=== PATIENT | female | born 1940 | race Caucasian/White ===

== ENCOUNTER → 2017-08-06 | Outpatient (CLI) | payer OTHER ==
[~2017-08-06] MED LIST: A-B OTIC EAR DR15 ML OT; AUGMENTIN 875-1 EACH PO; AVELOX 400 MG400 M1 PO; BACTRIM 400-801 EACH; BELLADONNA500 ML; CALCIUM 600 +1 EAC8 PO; CEFDINIR300 MG PO; CLEOCIN HCL300 MG PO; CLONAZEPAM 0.50.5 M1 PO; ESTRACE2 MG PO; FENOFIBRATE134 MG PO; GLIPIZIDE ER5 MG PO; HYDROCODON-ACE1 EAC7 PO; LEVAQUIN 500 M500 MG PO; LEVOTHYROXINE0.05 MG PO; MOVANA300 MG PO; MULTIVITAMINS1 EAC7 PO; NORCO 5-325 TA1 EACH PO; PREDNISONE 1 MG1 M1; PREDNISONE 10 M10 M1 PO; PRILOSEC40 MG; VESICARE 5 MG TA5 M1 PO; VITAMIN C + RO500 MG PO; VITAMIN D1000 UNI1 PO; ZOFRAN ODT4 MG PO
== END ==
LOC: M.RAD 08:41
DX: J98.4 Other disorders of lung (principal); R91.8 Other nonspecific abnormal finding of lung field

== ENCOUNTER → 2017-11-30 | Outpatient (CLI) | payer OTHER ==
[~2017-11-30] MED LIST changes: +NEURONTIN 300300 M1 PO; +OFEV100 MG PO; +ONDANSETRON HCL4 M2 PO; +TRESIBA FL100 UNIT/1; +VICTOZA0.6 MG/0.1 SUBQ
== END | disposition home or self-care (01) ==
LOC: M.RAD 16:36
DX: R91.8 Other nonspecific abnormal finding of lung field (principal)

== ENCOUNTER 2018-02-17 16:01 | Emergency (ER) | payer OTHER ==
[~2018-02-17] VITALS: Ht 157.5 cm; Wt 72.6 kg
[~2018-02-17 16:01] MED LIST changes: -NEURONTIN 300300 M1 PO; -OFEV100 MG PO; -ONDANSETRON HCL4 M2 PO; -TRESIBA FL100 UNIT/1; -VICTOZA0.6 MG/0.1 SUBQ
[2018-02-17] MEDS ORDERED: NEURONTIN 300300 M1 PO (16:25)
[2018-02-17] MEDS ORDERED: VICTOZA0.6 MG/0.1 SUBQ (16:25)
[2018-02-17] MEDS ORDERED: TRESIBA FL100 UNIT/1 (16:25)
[2018-02-17] MEDS ORDERED: OFEV100 MG PO (16:25)
[2018-02-17 16:55] LABS: URINE BLOOD TRACE (Negative); URINE CLARITY CLEAR; URINE COLOR YELLOW; URINE GLUCOSE-RANDOM 3+ (Negative); URINE KETONES TRACE (Negative); URINE LEUKOCYTES-REFLEX NEGATIVE (Negative); URINE NITRITE-REFLEX NEGATIVE (Negative); URINE PROTEIN TRACE (Negative); URINE SPECIFIC GRAVITY >= 1.030 (1.005-1.030)
[2018-02-17 16:56] LABS: URINE BILIRUBIN 2+ (Negative)
[2018-02-17 16:57] LABS: ABSOLUTE BASOPHILS 0.1 thou/uL (0.0-0.2); ABSOLUTE EOSINOPHILS 0.4 thou/uL (0.0-0.7); ABSOLUTE LYMPHOCYTES 1.3 thou/uL (0.8-5.3); ABSOLUTE MONOCYTES 0.7 thou/uL (0.0-1.2); ABSOLUTE NEUTROPHILS 3.5 thou/uL (1.6-8.1); BASOPHILS 1.1 %; EOSINOPHILS 6.9 %; HEMATOCRIT 41.8 % (37.0-47.0); HEMOGLOBIN 14.4 gm/dL (12.0-15.0); LYMPHOCYTES 22.5 %; MCH 33.1 pg (26.0-34.0); MCHC 34.6 g/dL (28.0-37.0); MCV 95.7 fL (80.0-100.0); MONOCYTES 11.1 %; MPV 6.9 fl. (7.2-11.1); NUCLEATED RBCS 0 /100WBC; PLATELET COUNT* 296 thou/uL (150-400); POLYS 58.4 %; RBC 4.37 mil/uL (4.20-5.00); RDW-CV 13.6 % (10.5-14.5)
[2018-02-17 16:58] LABS: ICTOTEST (BILI CONFIRMATORY) Negative (Negative)
[2018-02-17 17:00] LABS: CALCIUM 9.3 mg/dL (8.5-10.1); CREATININE 0.9 mg/dL (0.6-1.3); POTASSIUM 3.8 mmol/L (3.5-5.1)
[2018-02-17 17:04] LABS: ALBUMIN 3.4 g/dL (3.4-5.0); TOTAL BILIRUBIN 1.8 mg/dL (<0.1-1.0); TOTAL PROTEIN 7.1 g/dL (6.4-8.2)
[2018-02-17] MEDS ORDERED: NORCO 5-325 TA1 EACH PO (18:50)
[2018-02-17] MEDS ORDERED: ONDANSETRON HCL4 M2 PO (18:50)
[2018-02-17 19:15] VITALS: BP 123/71
== END 2018-02-17 19:16 | disposition home or self-care (01) ==
LOC: M.ERS 16:01
PROVIDERS: Nurse Practitioner Family
DX: R10.33 Periumbilical pain (principal); R10.13 Epigastric pain; E11.65 Type 2 diabetes mellitus with hyperglycemia; R94.5 Abnormal results of liver function studies; F41.9 Anxiety disorder, unspecified; K58.9 Irritable bowel syndrome, unspecified; E78.00 Pure hypercholesterolemia, unspecified; E03.9 Hypothyroidism, unspecified; Z90.710 Acquired absence of both cervix and uterus; Z88.5 Allergy status to narcotic agent; Z90.49 Acquired absence of other specified parts of digestive tract

== ENCOUNTER → 2019-03-29 | Outpatient (CLI) | payer OTHER ==
[~2019-03-29] MED LIST changes: +NEURONTIN 300300 M1 PO; +OFEV100 MG PO; +ONDANSETRON HCL4 M2 PO; +TRESIBA FL100 UNIT/1; +VICTOZA0.6 MG/0.1 SUBQ
== END ==
LOC: M.RAD 12:30
DX: M25.571 Pain in right ankle and joints of right foot (principal)

== ENCOUNTER 2019-07-13 22:00 | Observation (INO) | payer OTHER ==
[~2019-07-13] VITALS: Ht 157.5 cm; Wt 57.6 kg
[~2019-07-13 22:00] MED LIST changes: -LEVOTHYROXINE0.05 MG PO; +OMEPRAZOLE40 MG; -PRILOSEC40 MG; +SYNTHROID50 MCG PO
[2019-07-13 22:06] VITALS: BP 154/77
[2019-07-13 22:31] LABS: HEMOGLOBIN 13.4 gm/dL (12.0-15.0); NUCLEATED RBCS 0 /100WBC; RDW-CV 12.7 % (10.5-14.5)
[2019-07-13 22:34] LABS: HEMATOCRIT 38.6 % (37.0-47.0); MCH 33.6 pg (26.0-34.0); MCHC 34.8 g/dL (28.0-37.0); MCV 96.6 fL (80.0-100.0); MPV 6.2 fl. (7.2-11.1); PLATELET COUNT* 376 thou/uL (150-400); WBC 14.8 thou/uL (4.0-11.0)
[2019-07-13 22:36] LABS: CALCIUM 9.4 mg/dL (8.5-10.1); CREATININE 1.7 mg/dL (0.6-1.3); POTASSIUM 4.9 mmol/L (3.5-5.1)
[2019-07-13 22:41] LABS: ALBUMIN 3.5 g/dL (3.4-5.0); MAGNESIUM 1.7 mg/dL (1.8-2.4); TOTAL BILIRUBIN 0.5 mg/dL (<0.1-1.0); TOTAL PROTEIN 6.6 g/dL (6.4-8.2)
[2019-07-13 23:06] LABS: ABSOLUTE EOSINOPHILS 0.4 thou/uL (0.0-0.7); ABSOLUTE LYMPHOCYTES 2.2 thou/uL (0.8-5.3); ABSOLUTE MONOCYTES 0.3 thou/uL (0.0-1.2); ABSOLUTE NEUTROPHILS 11.8 thou/uL (1.6-8.1); ATYPICAL LYMPHS 1 %; CLUMPED PLTS FEW; PLATELET ESTIMATE ADEQUATE; TOXIC GRANULATION 1+
[2019-07-13 23:07] LABS: ANISOCYTOSIS Occasional
[2019-07-14] VITALS (11 sets, daily range): BP systolic 96–154; BP diastolic 45–84
[2019-07-14 04:59] LABS: URINE BILIRUBIN NEGATIVE (Negative); URINE BLOOD NEGATIVE (Negative); URINE CLARITY CLEAR; URINE COLOR YELLOW; URINE GLUCOSE-RANDOM 1+ (Negative); URINE KETONES NEGATIVE (Negative); URINE LEUKOCYTES-REFLEX NEGATIVE (Negative); URINE NITRITE-REFLEX NEGATIVE (Negative); URINE PROTEIN NEGATIVE (Negative); URINE SPECIFIC GRAVITY 1.015 (1.005-1.030); URINE UROBILINOGEN 0.2 E.U./dl (0.2-1.0)
--- NOTE | 2019-07-14 05:10 | NUR ---
VITALS STABLE, AFEBRILE. PT REMAINS ON RA, REPORTS SHE IS ON 1L PER NC AT HOME. DENIES PAIN WHEN STILL, REPORTS PAIN WHEN MOVING RIGHT ARM. ABLE TO GET UP TO COMMODE WITH SOME ASSISTANCE. FALL PRECAUTIONS IN PLACE. CALL LIGHT WITHIN REACH. WILL CONTINUE MONITORING.
[2019-07-14] MEDS ORDERED: NORCO 5-325 TA1 EAC2 PO (08:15)
--- NOTE | 2019-07-14 10:04 | NUR ---
Pt is A&O. Normally resides at home alone. Independent. No DME. Pt discharging to today, plans to dc to her dtr, Bernarda Phan's home, [address] [place] [id number], . Dtr to pick Pt up from home later today. Neighbor will transport Pt home. HH arranged with [facility] p:[phone], f:[phone]. Updated Pt and dtr.
[2019-07-14 10:11] LABS: HEMATOCRIT 36.3 % (37.0-47.0); HEMOGLOBIN 12.5 gm/dL (12.0-15.0); MCH 33.1 pg (26.0-34.0); MCHC 34.6 g/dL (28.0-37.0); MCV 95.8 fL (80.0-100.0); MPV 6.4 fl. (7.2-11.1); RBC 3.79 mil/uL (4.20-5.00); RDW-CV 12.9 % (10.5-14.5); WBC 16.8 thou/uL (4.0-11.0)
[2019-07-14 10:18] LABS: CALCIUM 8.8 mg/dL (8.5-10.1); CREATININE 1.1 mg/dL (0.6-1.3); MAGNESIUM 2.2 mg/dL (1.8-2.4); POTASSIUM 4.2 mmol/L (3.5-5.1)
--- NOTE | 2019-07-14 12:34 | NUR ---
PATIENT D/C TO HOME WITH HOME HEALTH AFTER PT/OT EVALUATION AND ORTHO TEAM CLEARED. AOF BOOT FOR RIGHT FOOT DROP PROVIDED. SLING ON AND EDUCATED ON IMPORTANANCE OF KEEPING ON AND NOT USING SHOULDER. FOLLOW UPS PROVIDED. ALL QUESTIONS ANSWERED. DISCHARGE INSTRUCTIONS PROVIDED. DAUGHTER AWARE OF D/C AND ON HER WAY FROM [facility] TO RADIOGRAPHY TECHNICIAN PATIENT. HH TO CALL PATIENT TO SET UP CARE.
== END 2019-07-14 12:30 | disposition home health service (06) ==
LOC: M.ERS 22:00 → M.ICU 07-14 00:04 → M.TBA-ER 07-14 00:04 → M.ICU 07-14 00:04
PROVIDERS: Emergency Medicine; ADMIT Internal Medicine
DX: M80.021A Age-related osteoporosis with current pathological fracture, right humerus, initial encounter for fracture (principal); E86.9 Volume depletion, unspecified; E11.65 Type 2 diabetes mellitus with hyperglycemia; E83.42 Hypomagnesemia; R32 Unspecified urinary incontinence; R53.81 Other malaise; R55 Syncope and collapse; W01.0XXA Fall on same level from slipping, tripping and stumbling without subsequent striking against object, initial encounter; Y92.89 Other specified places as the place of occurrence of the external cause; Y93.89 Activity, other specified; Y99.8 Other external cause status

== ENCOUNTER 2020-01-03 21:14 | Inpatient (IN) | payer OTHER ==
[~2020-01-03] VITALS: Ht 157.5 cm; Wt 68.0 kg
[~2020-01-03 21:14] MED LIST changes: +NORCO 5-325 TA1 EAC2 PO
[2020-01-03 21:27] VITALS: BP 155/72
[2020-01-03 21:46] LABS: ABSOLUTE BASOPHILS 0.2 thou/uL (0.0-0.2); ABSOLUTE EOSINOPHILS 0.2 thou/uL (0.0-0.7); ABSOLUTE LYMPHOCYTES 1.6 thou/uL (0.8-5.3); ABSOLUTE NEUTROPHILS 14.8 thou/uL (1.6-8.1); BASOPHILS 0.9 %; EOSINOPHILS 0.9 %; HEMATOCRIT 37.8 % (37.0-47.0); HEMOGLOBIN 12.8 gm/dL (12.0-15.0); LYMPHOCYTES 9.1 %; MCH 32.6 pg (26.0-34.0); MCHC 33.8 g/dL (28.0-37.0); MCV 96.6 fL (80.0-100.0); MONOCYTES 5.6 %; MPV 6.4 fl. (7.2-11.1); NUCLEATED RBCS 0 /100WBC; PLATELET COUNT* 302 thou/uL (150-400); POLYS 83.5 %; RBC 3.91 mil/uL (4.20-5.00); RDW-CV 13.4 % (10.5-14.5); WBC 17.7 thou/uL (4.0-11.0)
[2020-01-03 21:54] LABS: CALCIUM 8.8 mg/dL (8.5-10.1); CREATININE 1.1 mg/dL (0.6-1.3); POTASSIUM 3.6 mmol/L (3.5-5.1)
[2020-01-03 21:58] LABS: ALBUMIN 3.4 g/dL (3.4-5.0); TOTAL BILIRUBIN 1.5 mg/dL (<0.1-1.0); TOTAL PROTEIN 6.9 g/dL (6.4-8.2)
[2020-01-04] VITALS (23 sets, daily range): BP systolic 92–152; BP diastolic 39–76
[2020-01-04 08:14] LABS: BE -4.3 mmol/L (-2 to +3); PCO2 38.3 mmHg (35.0-45.0); pH 7.353 (7.340-7.450)
[2020-01-04 17:18] LABS: PCO2 38.8 mmHg (35.0-45.0)
[2020-01-04 17:32] LABS: PO2 149.5 mmHg (75.0-100.0)
--- NOTE | 2020-01-04 17:46 | EKG ---
[place] [address] ELECTROCARDIOGRAM REPORT Name: ADIA TSANG Room: [address] ADM IN ..#: [id number] Admission: 01/03/20 Attend Phys: Radhika Vasquez, Discharge: Date of : 44 Date of Service: 01/03/208 Report #: [id number] THIS REPORT FOR: //name// [facility] ED Test Date: 2020-01-03 Test Time: 21:38:33 Pat Name: ADIA TSANG Department: Room: [facility] Gender: F Application Integrator: SHANNAN : 1940 Requested By: Nj Laird Order Number: [id number] MD: Aftab Snyder Measurements Intervals [place] Rate: 98 P: 24 LA: 132 QRS: -36 QRSD: 80 T: 119 QT: 328 QTc: 419 Interpretive Statements Sinus rhythm Left anterior fascicular block RSR' in V1 or V2, probably normal variant Consider anterior infarct Abnormal T, consider ischemia, lateral leads No previous ECG available for comparison Electronically Signed On 01-04-2020 17:46:30 CDT by Aftab Snyder [email or web address] <ELECTRONICALLY SIGNED> By: Aftab Snyder MD, FACC 01/04/20 1746 37 37 Aftab Snyder MD, FACC /EPI
[2020-01-04 18:36] LABS: HEMATOCRIT 31.6 % (37.0-47.0); MCH 32.7 pg (26.0-34.0); MCHC 33.6 g/dL (28.0-37.0); MCV 97.2 fL (80.0-100.0); MPV 6.7 fl. (7.2-11.1); NUCLEATED RBCS 0 /100WBC; PLATELET COUNT* 270 thou/uL (150-400); RBC 3.25 mil/uL (4.20-5.00); RDW-CV 13.5 % (10.5-14.5); WBC 17.5 thou/uL (4.0-11.0)
[2020-01-04 18:38] LABS: HEMOGLOBIN 10.6 gm/dL (12.0-15.0)
[2020-01-04 18:45] LABS: ALBUMIN 2.7 g/dL (3.4-5.0); CALCIUM 8.4 mg/dL (8.5-10.1); CREATININE 1.1 mg/dL (0.6-1.3); MAGNESIUM 1.8 mg/dL (1.8-2.4); PHOSPHORUS* 3.5 mg/dL (2.5-4.9); POTASSIUM 4.4 mmol/L (3.5-5.1); TOTAL PROTEIN 6.1 g/dL (6.4-8.2)
[2020-01-04 19:01] LABS: ABSOLUTE LYMPHOCYTES 1.2 thou/uL (0.8-5.3); ABSOLUTE MONOCYTES 0.9 thou/uL (0.0-1.2); ABSOLUTE NEUTROPHILS 15.4 thou/uL (1.6-8.1)
[2020-01-04 19:02] LABS: LARGE PLATELETS RARE; PLATELET ESTIMATE ADEQUATE
[2020-01-05] VITALS (55 sets, daily range): BP systolic 85–152; BP diastolic 38–74
[2020-01-05 05:36] LABS: CALCIUM 8.7 mg/dL (8.5-10.1); CREATININE 1.2 mg/dL (0.6-1.3); POTASSIUM 3.7 mmol/L (3.5-5.1)
[2020-01-05 06:32] LABS: ABSOLUTE LYMPHOCYTES 0.7 thou/uL (0.8-5.3); ABSOLUTE MONOCYTES 0.3 thou/uL (0.0-1.2); ABSOLUTE NEUTROPHILS 14.3 thou/uL (1.6-8.1); BASOPHILS 0.2 %; HEMATOCRIT 28.7 % (37.0-47.0); HEMOGLOBIN 9.7 gm/dL (12.0-15.0); LYMPHOCYTES 4.6 %; MCH 32.8 pg (26.0-34.0); MCHC 33.8 g/dL (28.0-37.0); MONOCYTES 2.2 %; MPV 6.7 fl. (7.2-11.1); NUCLEATED RBCS 0 /100WBC; PLATELET COUNT* 257 thou/uL (150-400); RBC 2.96 mil/uL (4.20-5.00); WBC 15.4 thou/uL (4.0-11.0)
[2020-01-05 11:24] LABS: BE -3.6 mmol/L (-2 to +3); PCO2 27.8 mmHg (35.0-45.0); PO2 91.2 mmHg (75.0-100.0); pH 7.461 (7.340-7.450)
--- NOTE | 2020-01-05 12:19 | CON ---
[address] [address] CONSULTATION Name: ADIA TSANG Room: [address] IN .R.#: [id number] Admission: 01/03/20 Attend Phys: Radhika Vasquez MD Discharge: Date of : 44 Report #: [id number] THIS REPORT FOR: //name// cc: Jenise Goldstein MD, Lin W. MD ~ THIS REPORT FOR: //name// DATE OF SERVICE: 01/04/2020 CONSULT REQUESTED BY: Rico Duarte MD INDICATION FOR CONSULTATION: Eskhr-ta-jyqarxd hypoxemic respiratory failure. HISTORY OF PRESENT ILLNESS: This is a 79-year-old female with past medical history includes a history of pulmonary fibrosis. The patient is on oxygen long-term. I am not aware of a previous history of long-term steroid use. The patient does use a fibroblasts to inhibit her Ofev long-term. The patient is now admitted with acute increase in shortness of breath, initially noted to have desaturated into the 70s. The patient has had recent falls as well. The patient, per the records is a DNR; however, it appears that the patient failed BiPAP and she was endotracheally intubated. The patient currently is on the ventilator. She is currently on Versed as well as fentanyl infusions. Blood pressure is soft; however, still in an acceptable range. She did have a CTA chest performed last night. It shows considerable worsening and previously seen infiltrates; however, previous x-rays from a couple of years ago, I do not have a more recent comparison. The patient is unable to provide a further history or review of systems. PAST MEDICAL HISTORY: Type 2 diabetes, pulmonary fibrosis, on the fibroblast inhibitor long-term on oxygen long-term. This history will be consistent with a usual interstitial pneumonitis, status post hysterectomy, laparoscopic cholecystectomy, irritable bowel syndrome, depression, neuropathy, ankle strain and multiple falls. I do not have a measure of her left ventricular ejection fraction available at this time. SOCIAL HISTORY: Lifetime nonsmoker. No known history of heavy alcohol use or illegal drug use according to the records, I am not able to ask the patient directly at this time. CURRENT MEDICATIONS: List in Xceive reviewed. HOME MEDICATIONS: List also in Xceive reviewed. Note that the patient is on Ofev chcf. ALLERGIES: [place] [address] CONSULTATION Name: SURYAMELCHORADIA A Room: [address]#: [id number] Admission: 01/03/20 Attend Phys: Radhika Vasquez MD Discharge: Date of : 44 Report #: [id number] FAMILY HISTORY: There is no pertinent family history known at this time. PHYSICAL EXAMINATION: GENERAL: The patient is on the ventilator with a tidal volume of 500 and AC rate of 14, FiO2 is being titrated down, last noted to be at 60%. She is saturating in the high 90s. VITAL SIGNS: Has a pulse of 75. She is afebrile with a temperature of 36.3. HEENT: Head is normocephalic. There is bruising and injury to her right upper face/eye noted. There is an endotracheal tube in good position. NECK: Does not show raised JVP, asymmetry, mass or lymph nodes. CHEST: Symmetrical expansion on inspection and palpation. On auscultation, breath sounds are bilaterally equal. I do not hear any added sounds. HEART: Regular. There is no murmur. ABDOMEN: Soft and nontender. EXTREMITIES: Lower extremities show no edema, no calf tenderness. SKIN: Dry and intact. NEUROLOGICAL: She did move all extremities bilaterally equally and spontaneously. However, a detailed examination is not possible at this time. The patient's CTA chest from last night is as discussed above. LABORATORY DATA: The patient's lab work is in Xceive and is reviewed. COVID-19 antigen is negative. PCR is pending. ASSESSMENT AND PLAN: 1. Quvth-om-ktelhxa hypoxemic respiratory failure. There is an increase in infiltrates on the patient's chest x-ray compared with the x-ray performed in 2018. Either the patient's pulmonary fibrosis has significantly progressed or the patient has developed a new pneumonia. I do not have a more recent comparison available. There are x-rays of the ribs done in June, which do mage the chest as well. The new CT does appear to look significantly worse. For now, we will continue with current ventilator settings and sedation. We will titrate down FiO2 and follow response. 2. Pulmonary fibrosis/probable usual interstitial pneumonitis. The patient was on Ofev, therefore likely has usual interstitial pneumonitis underlying, in the short term corticosteroids are indicated during exacerbations. The patient is on Solu-Medrol. I agree with the same. Also, we will continue with DuoNebs. 3. Pulmonary infiltrates. I will obtain a repeat chest x-ray now post-intubation compared with the previous chest x-rays. The patient is on Levaquin. I did add Zosyn. I ordered sputum culture, I also ordered repeat labs. We will reevaluate after these are back and then assess as to whether MRSA coverage should also be added. I agree with testing for COVID-19 PCR as well. At this point, it is not fully apparent to me as to whether this is a progression of her fibrosis or whether the patient has an acute viral or bacterial pneumonia. The patient, however, is not febrile and does not have bandemia, [place] [address] CONSULTATION Name: TAPANROBERTMELCHORADIA Room: [address] IN [facility]#: [id number] Admission: 01/03/20 Attend Phys: Radhika Vasquez MD Discharge: Date of : 44 Report #: [id number] 4. IV access. The patient has a PICC line. 5. Deep vein thrombosis prophylaxis, Lovenox. 7. Gastrointestinal prophylaxis, Protonix. The patient is critically ill at this time. Total time spent providing critical care to this patient today is 43 minutes. <ELECTRONICALLY SIGNED> By: Clive Muñoz MD 01/05/20 1219 1757 1946Aelmer Muñoz MD /nt
--- NOTE | 2020-01-05 17:28 | 2DMMODE ---
[place] [address] 2 D/M-MODE ECHOCARDIOGRAM Name: ADIA TSANG Room: [address] ADM [place] .R.#: [id number] Admission: 01/03/20 Attend Phys: Radhika Vasquez, Discharge: Date of : 44 Date of Service: 01/05/20 1728 Report #: [id number] THIS REPORT FOR: cc: Jenise Goldstein MD, Lin W. MD Liston, Michael J. MD [facility] ~ APPROVED REPORT Study performed: 01/05/2020 14:16:14 EXAM: Comprehensive 2D, Doppler, and color-flow Echocardiogram Patient Location: ICU BSA: 1.59 HR: 66 bpm BP: 110/50 mmHg Other Information Study Quality: Adequate Indications Dyspnea 2D Dimensions IVSd: 12.65 (7-11mm) LVOT Diam: 18.15 (18-24mm) LVDd: 31.37 mm PWd: 12.22 (7-11mm) Ascending Ao: 27.44 (22-36mm) LVDs: 19.76 (25-40mm) Aortic Root: 25.68 mm Volumes Left Atrial Volume (Systole) LA ESV Index: 21.20 mL/m2 Aortic Valve AoV Peak Young.: 1.47 m/s AO Peak Gr.: 8.70 mmHg LVOT Max P.00 mmHg AO Mean Gr.: 5.01 mmHg LVOT Mean P.33 mmHg LVOT Max V: 1.12 m/s AO V2 VTI: 33.27 cm LVOT Mean V: 0.89 m/s THONY (VTI): 2.38 cm2 LVOT V1 VTI: 30.67 cm Mitral Valve MV Mean Gr.: 2.02 mmHg E/A Ratio: 0.77 [place] [address] 2 D/M-MODE ECHOCARDIOGRAM Name: ADIA TSANG Room: [address] IN ..#: [id number] Admission: 01/03/20 Attend Phys: Radhika Vasquez, Discharge: Date of : 44 Date of Service: 01/05/20 1728 Report #: [id number] MV Decel. Time: 310.79 ms MV E Max Young.: 0.97 m/s MV PHT: 90.13 ms MVA (PHT): 2.44 cm2 TDI E/Lateral E': 16.17 E/Medial E': 16.17 Medial E' Young.: 0.06 m/s Lateral E' Young.: 0.06 m/s Pulmonary Valve PV Peak Young.: 0.97 m/s PV Peak Gr.: 3.75 mmHg Tricuspid Valve RAP Estimate: 5.00 mmHg TR Peak Gr.: 65.33 mmHg RVSP: 70.33 mmHg PA Pressure: 70.33 mmHg Left Ventricle The left ventricle is normal size. There is normal LV segmental wall motion. Moderate concentric left ventricular hypertrophy. Left ventricular systolic function is vigorous. LVEF is 80-85%. Grade I - abnormal relaxation pattern. Right Ventricle The right ventricle is normal size. The right ventricular systolic function is normal. Atria The left atrium size is normal. The right atrium size is normal. Aortic Valve The Aortic valve is sclerotic. No aortic regurgitation is present. There is no aortic valvular stenosis. Mitral Valve There is mitral annular calcification. Trace mitral regurgitation. No evidence of mitral valve stenosis. Tricuspid Valve The tricuspid valve is normal in structure. Moderate tricuspid regurgitation. The RVSP is 70 There is moderate pulmonary hypertension. [place] [address] 2 D/M-MODE ECHOCARDIOGRAM Name: ADIA TSANG Room: [address]#: [id number] Admission: 01/03/20 Attend Phys: Radhika Vasquez, Discharge: Date of : 44 Date of Service: 01/05/20 1728 Report #: [id number] The pulmonary valve is normal in structure. Trace pulmonic regurgitation. Great Vessels The aortic root is normal in size. IVC is not visualized. Pericardium There is no pericardial effusion. <Conclusion> Left ventricular systolic function is vigorous. LVEF is 80-85%. Grade I - abnormal relaxation pattern. The Aortic valve is sclerotic. There is mitral annular calcification. Trace mitral regurgitation. Moderate tricuspid regurgitation. The RVSP is 70 There is moderate pulmonary hypertension. mmHg. <ELECTRONICALLY SIGNED> By: Aftab Snyder MD, FACC 01/05/201727 27 27 Aftab Snyder MD, FACC /INF
[2020-01-06] VITALS (34 sets, daily range): BP systolic 125–166; BP diastolic 47–79
[2020-01-06 05:26] LABS: ABSOLUTE LYMPHOCYTES 0.5 thou/uL (0.8-5.3); ABSOLUTE MONOCYTES 0.3 thou/uL (0.0-1.2); ABSOLUTE NEUTROPHILS 17.9 thou/uL (1.6-8.1); BASOPHILS 0.2 %; HEMATOCRIT 30.8 % (37.0-47.0); HEMOGLOBIN 10.3 gm/dL (12.0-15.0); LYMPHOCYTES 2.5 %; MCH 31.9 pg (26.0-34.0); MCHC 33.4 g/dL (28.0-37.0); MCV 95.5 fL (80.0-100.0); MONOCYTES 1.3 %; MPV 6.8 fl. (7.2-11.1); NUCLEATED RBCS 0 /100WBC; PLATELET COUNT* 303 thou/uL (150-400); RBC 3.23 mil/uL (4.20-5.00); RDW-CV 13.3 % (10.5-14.5); WBC 18.6 thou/uL (4.0-11.0)
[2020-01-06 05:51] LABS: ALBUMIN 2.5 g/dL (3.4-5.0); CALCIUM 8.9 mg/dL (8.5-10.1); CREATININE 1.1 mg/dL (0.6-1.3); MAGNESIUM 2.9 mg/dL (1.8-2.4); POTASSIUM 3.6 mmol/L (3.5-5.1); TOTAL BILIRUBIN 0.6 mg/dL (<0.1-1.0); TOTAL PROTEIN 6.3 g/dL (6.4-8.2)
[2020-01-06 12:03] LABS: BE -7.2 mmol/L (-2 to +3); PCO2 30.4 mmHg (35.0-45.0); PO2 77.8 mmHg (75.0-100.0); pH 7.368 (7.340-7.450)
[2020-01-06 13:08] LABS: ANTI-DNA SCREEN <1 IU/mL (0-9); ANTI-RNP 0.2 AI (0.0-0.9)
[2020-01-06 14:07] LABS: URINE BILIRUBIN NEGATIVE (Negative); URINE BLOOD NEGATIVE (Negative); URINE CLARITY CLEAR; URINE COLOR YELLOW; URINE GLUCOSE-RANDOM 1+ (Negative); URINE KETONES 1+ (Negative); URINE LEUKOCYTES-REFLEX NEGATIVE (Negative); URINE NITRITE-REFLEX NEGATIVE (Negative); URINE PROTEIN NEGATIVE (Negative); URINE UROBILINOGEN 0.2 E.U./dl (0.2-1.0)
[2020-01-07] VITALS (37 sets, daily range): BP systolic 118–168; BP diastolic 51–92
[2020-01-07 06:07] LABS: ABSOLUTE LYMPHOCYTES 0.4 thou/uL (0.8-5.3); ABSOLUTE MONOCYTES 0.4 thou/uL (0.0-1.2); ABSOLUTE NEUTROPHILS 12.1 thou/uL (1.6-8.1); HEMATOCRIT 29.2 % (37.0-47.0); HEMOGLOBIN 9.6 gm/dL (12.0-15.0); LYMPHOCYTES 3.2 %; MCH 31.9 pg (26.0-34.0); MCHC 32.9 g/dL (28.0-37.0); MCV 96.9 fL (80.0-100.0); MONOCYTES 3.4 %; MPV 7.2 fl. (7.2-11.1); NUCLEATED RBCS 0 /100WBC; PLATELET COUNT* 265 thou/uL (150-400); POLYS 93.4 %; RBC 3.02 mil/uL (4.20-5.00); RDW-CV 13.4 % (10.5-14.5); WBC 12.9 thou/uL (4.0-11.0)
[2020-01-07 06:21] LABS: ALBUMIN 2.4 g/dL (3.4-5.0); CALCIUM 9.5 mg/dL (8.5-10.1); CREATININE 1.4 mg/dL (0.6-1.3); MAGNESIUM 2.5 mg/dL (1.8-2.4); POTASSIUM 4.4 mmol/L (3.5-5.1); TOTAL BILIRUBIN 0.5 mg/dL (<0.1-1.0)
[2020-01-08] VITALS (39 sets, daily range): BP systolic 122–179; BP diastolic 37–86
[2020-01-08 12:14] LABS: HEMOGLOBIN 9.7 gm/dL (12.0-15.0); MCH 32.6 pg (26.0-34.0); MCHC 33.4 g/dL (28.0-37.0); MCV 97.5 fL (80.0-100.0); MPV 7.4 fl. (7.2-11.1); NUCLEATED RBCS 0 /100WBC; PLATELET COUNT* 253 thou/uL (150-400); RBC 2.97 mil/uL (4.20-5.00); RDW-CV 13.6 % (10.5-14.5); WBC 13.3 thou/uL (4.0-11.0)
[2020-01-08 12:15] LABS: BE 0.1 mmol/L (-2 to +3); PCO2 37.4 mmHg (35.0-45.0); PO2 92.1 mmHg (75.0-100.0)
[2020-01-08 12:17] LABS: CALCIUM 10.1 mg/dL (8.5-10.1); CREATININE 1.1 mg/dL (0.6-1.3); POTASSIUM 4.1 mmol/L (3.5-5.1)
[2020-01-08 12:20] LABS: MAGNESIUM 2.3 mg/dL (1.8-2.4); PHOSPHORUS* 2.7 mg/dL (2.5-4.9)
[2020-01-08 13:13] LABS: ABSOLUTE LYMPHOCYTES 0.3 thou/uL (0.8-5.3); ABSOLUTE MONOCYTES 0.1 thou/uL (0.0-1.2); ABSOLUTE NEUTROPHILS 12.9 thou/uL (1.6-8.1)
[2020-01-08 13:14] LABS: PLATELET ESTIMATE ADEQUATE
[2020-01-08 13:15] LABS: TOXIC GRANULATION 1+
[2020-01-08] MEDS ORDERED: ESBRIET267 M1 PO (19:45)
[2020-01-09] VITALS (36 sets, daily range): BP systolic 96–191; BP diastolic 46–89
[2020-01-09 06:24] LABS: HEMATOCRIT 32.2 % (37.0-47.0); HEMOGLOBIN 10.6 gm/dL (12.0-15.0); MCH 31.9 pg (26.0-34.0); MCV 96.7 fL (80.0-100.0); MPV 7.4 fl. (7.2-11.1); NUCLEATED RBCS 0 /100WBC; PLATELET COUNT* 314 thou/uL (150-400); RBC 3.33 mil/uL (4.20-5.00); RDW-CV 13.8 % (10.5-14.5)
[2020-01-09 06:27] LABS: WBC 28.9 thou/uL (4.0-11.0)
[2020-01-09 06:41] LABS: ALBUMIN 2.5 g/dL (3.4-5.0); CALCIUM 9.3 mg/dL (8.5-10.1); CREATININE 0.8 mg/dL (0.6-1.3); POTASSIUM 3.6 mmol/L (3.5-5.1); TOTAL BILIRUBIN 0.8 mg/dL (<0.1-1.0); TOTAL PROTEIN 5.7 g/dL (6.4-8.2)
[2020-01-09 07:32] LABS: ABSOLUTE LYMPHOCYTES 1.4 thou/uL (0.8-5.3); ABSOLUTE MONOCYTES 0.6 thou/uL (0.0-1.2); ABSOLUTE NEUTROPHILS 26.9 thou/uL (1.6-8.1); HYPOCHROMASIA 1+; PLATELET ESTIMATE ADEQUATE
[2020-01-10] VITALS (37 sets, daily range): BP systolic 91–128; BP diastolic 34–70
[2020-01-10 02:06] LABS: GLYCOHEMOGLOBIN (HGB A1C) 9.3 % (4.8-5.6)
[2020-01-10 04:31] LABS: BASOPHILS 0.1 %; HEMATOCRIT 27.1 % (37.0-47.0); LYMPHOCYTES 4.1 %; MCH 31.9 pg (26.0-34.0); MCV 96.6 fL (80.0-100.0); MONOCYTES 2.2 %; MPV 7.3 fl. (7.2-11.1); NUCLEATED RBCS 0 /100WBC; POLYS 93.6 %; RBC 2.81 mil/uL (4.20-5.00); RDW-CV 13.5 % (10.5-14.5)
[2020-01-10 04:35] LABS: ABSOLUTE LYMPHOCYTES 0.5 thou/uL (0.8-5.3); ABSOLUTE MONOCYTES 0.3 thou/uL (0.0-1.2); ABSOLUTE NEUTROPHILS 11.6 thou/uL (1.6-8.1); PLATELET COUNT* 191 thou/uL (150-400); WBC 12.4 thou/uL (4.0-11.0)
[2020-01-10 04:47] LABS: CALCIUM 7.8 mg/dL (8.5-10.1); CREATININE 0.8 mg/dL (0.6-1.3); POTASSIUM 4.2 mmol/L (3.5-5.1); TOTAL BILIRUBIN 0.7 mg/dL (<0.1-1.0); TOTAL PROTEIN 4.9 g/dL (6.4-8.2)
[2020-01-11] VITALS (44 sets, daily range): BP systolic 44–158; BP diastolic 22–93
[2020-01-11 05:34] LABS: ABSOLUTE LYMPHOCYTES 0.4 thou/uL (0.8-5.3); ABSOLUTE MONOCYTES 0.3 thou/uL (0.0-1.2); ABSOLUTE NEUTROPHILS 13.8 thou/uL (1.6-8.1); HEMATOCRIT 27.2 % (37.0-47.0); HEMOGLOBIN 9.5 gm/dL (12.0-15.0); LYMPHOCYTES 2.6 %; MCH 33.7 pg (26.0-34.0); MCHC 34.8 g/dL (28.0-37.0); MCV 96.9 fL (80.0-100.0); MONOCYTES 1.7 %; MPV 7.7 fl. (7.2-11.1); NUCLEATED RBCS 0 /100WBC; PLATELET COUNT* 180 thou/uL (150-400); POLYS 95.7 %; RBC 2.81 mil/uL (4.20-5.00); RDW-CV 13.5 % (10.5-14.5); WBC 14.4 thou/uL (4.0-11.0)
[2020-01-11 06:02] LABS: PREALBUMIN 15.5 mg/dL (18.0-35.7)
[2020-01-11 06:06] LABS: ALBUMIN 2.1 g/dL (3.4-5.0); CALCIUM 7.8 mg/dL (8.5-10.1); CREATININE 0.9 mg/dL (0.6-1.3); POTASSIUM 3.9 mmol/L (3.5-5.1); TOTAL BILIRUBIN 0.7 mg/dL (<0.1-1.0); TOTAL PROTEIN 5.1 g/dL (6.4-8.2)
--- NOTE | 2020-01-11 13:17 | 2DMMODE ---
[place] [address] 2 D/M-MODE ECHOCARDIOGRAM Name: ADIA TSANG Room: [address] ADM [place] .R.#: [id number] Admission: 01/03/20 Attend Phys: Radhika Vasquez, Discharge: Date of : 44 Date of Service: 01/11/20 1317 Report #: [id number] THIS REPORT FOR: cc: Jenise Goldstein MD, Lin W. MD Blick, David R. MD [facility] ~ APPROVED REPORT Study performed: 01/11/2020 09:38:12 EXAM: Limited 2D, Doppler Echocardiogram BSA: 1.76 HR: 57 bpm BP: 112/53 mmHg Other Information Study Quality: Adequate Indications Sepsis Reassess PA pressure 2D Dimensions IVSd: 14.14 (7-11mm) LVOT Diam: 19.80 (18-24mm) LVDd: 33.89 mm PWd: 12.49 (7-11mm) Ascending Ao: 27.35 (22-36mm) LVDs: 21.50 (25-40mm) Aortic Root: 26.34 mm Tricuspid Valve RAP Estimate: 15.00 mmHg TR Peak Gr.: 64.86 mmHg RVSP: 79.86 mmHg PA Pressure: 79.86 mmHg Left Ventricle The left ventricle is normal size. Mild concentric left ventricular hypertrophy. Left ventricular systolic function is normal. The left ventricular ejection fraction is within the normal range. LVEF is 60-65%. Right Ventricle The right ventricle is normal size. Aortic Valve [address] [address] 2 D/M-MODE ECHOCARDIOGRAM Name: ADIA TSANG Room: [address] IN [facility]#: [id number] Admission: 01/03/20 Attend Phys: Radhika Vasuqez, Discharge: Date of : 44 Date of Service: 01/11/207 Report #: [id number] The Aortic valve is sclerotic. Mitral Valve Mitral valve is normal in structure. Moderate mitral annular calcification. No evidence of mitral valve stenosis. Tricuspid Valve The tricuspid valve is normal in structure. Moderate tricuspid regurgitation. estimated pa pressure 65 mm Hg Pulmonic Valve Pulmonic valve is not well visualized. Great Vessels The aortic root is normal in size. The IVC is dilated. Pericardium There is no pericardial effusion. <Conclusion> Mild concentric left ventricular hypertrophy. LVEF is 60-65%. The Aortic valve is sclerotic. Moderate tricuspid regurgitation. estimated pa pressure 65 mm Hg <ELECTRONICALLY SIGNED> By: Rich Hammond MD, [facility] 01/11/207 16 1317 Rich Hammond MD, FACC /INF
[2020-01-12] VITALS (26 sets, daily range): BP systolic 107–186; BP diastolic 55–80
[2020-01-12 04:39] LABS: HEMATOCRIT 29.8 % (37.0-47.0); HEMOGLOBIN 10.1 gm/dL (12.0-15.0); MCH 32.2 pg (26.0-34.0); MCHC 33.8 g/dL (28.0-37.0); MCV 95.2 fL (80.0-100.0); MPV 7.6 fl. (7.2-11.1); NUCLEATED RBCS 0 /100WBC; RBC 3.13 mil/uL (4.20-5.00); RDW-CV 13.7 % (10.5-14.5)
[2020-01-12 05:38] LABS: PLATELET COUNT* 257 thou/uL (150-400); WBC 29.9 thou/uL (4.0-11.0)
[2020-01-12 06:02] LABS: ALBUMIN 2.8 g/dL (3.4-5.0); CALCIUM 8.8 mg/dL (8.5-10.1); CREATININE 1.1 mg/dL (0.6-1.3); MAGNESIUM 2.1 mg/dL (1.8-2.4); POTASSIUM 3.7 mmol/L (3.5-5.1); TOTAL PROTEIN 5.9 g/dL (6.4-8.2)
[2020-01-12 06:16] LABS: ABSOLUTE LYMPHOCYTES 0.9 thou/uL (0.8-5.3); ABSOLUTE MONOCYTES 0.3 thou/uL (0.0-1.2); ABSOLUTE NEUTROPHILS 28.7 thou/uL (1.6-8.1); ANISOCYTOSIS 1+; PLATELET ESTIMATE ADEQUATE; POIKILOCYTOSIS 1+
[2020-01-12 14:13] LABS: BE -1.2 mmol/L (-2 to +3); PCO2 34.5 mmHg (35.0-45.0); PO2 65.3 mmHg (75.0-100.0); pH 7.435 (7.340-7.450)
[2020-01-12 19:57] LABS: CALCIUM 8.3 mg/dL (8.5-10.1); CREATININE 1.1 mg/dL (0.6-1.3); MAGNESIUM 1.9 mg/dL (1.8-2.4); POTASSIUM 3.7 mmol/L (3.5-5.1)
[2020-01-12 20:33] LABS: CALCIUM 8.6 mg/dL (8.5-10.1); CREATININE 1.1 mg/dL (0.6-1.3); MAGNESIUM 1.9 mg/dL (1.8-2.4); POTASSIUM 3.9 mmol/L (3.5-5.1)
[2020-01-13] VITALS (21 sets, daily range): BP systolic 118–176; BP diastolic 60–87
[2020-01-13 04:53] LABS: ABSOLUTE BASOPHILS 0.2 thou/uL (0.0-0.2); ABSOLUTE LYMPHOCYTES 0.6 thou/uL (0.8-5.3); ABSOLUTE MONOCYTES 0.3 thou/uL (0.0-1.2); ABSOLUTE NEUTROPHILS 34.2 thou/uL (1.6-8.1); BASOPHILS 0.7 %; HEMATOCRIT 29.4 % (37.0-47.0); HEMOGLOBIN 9.7 gm/dL (12.0-15.0); LYMPHOCYTES 1.6 %; MCH 31.8 pg (26.0-34.0); MCHC 32.9 g/dL (28.0-37.0); MCV 96.4 fL (80.0-100.0); MONOCYTES 0.9 %; MPV 7.6 fl. (7.2-11.1); NUCLEATED RBCS 0 /100WBC; PLATELET COUNT* 179 thou/uL (150-400); POLYS 96.8 %; RBC 3.05 mil/uL (4.20-5.00); RDW-CV 13.6 % (10.5-14.5); WBC 35.3 thou/uL (4.0-11.0)
[2020-01-13 04:59] LABS: CALCIUM 9.1 mg/dL (8.5-10.1); MAGNESIUM 2.1 mg/dL (1.8-2.4); POTASSIUM 4.1 mmol/L (3.5-5.1); TOTAL BILIRUBIN 1.1 mg/dL (<0.1-1.0); TOTAL PROTEIN 5.9 g/dL (6.4-8.2)
[2020-01-13 11:54] LABS: BE -0.3 mmol/L (-2 to +3); PCO2 35.1 mmHg (35.0-45.0); PO2 65.5 mmHg (75.0-100.0); pH 7.443 (7.340-7.450)
[2020-01-13 14:39] LABS: URINE BILIRUBIN NEGATIVE (Negative); URINE BLOOD NEGATIVE (Negative); URINE CLARITY CLEAR; URINE COLOR YELLOW; URINE GLUCOSE-RANDOM NEGATIVE (Negative); URINE KETONES NEGATIVE (Negative); URINE LEUKOCYTES-REFLEX NEGATIVE (Negative); URINE NITRITE-REFLEX NEGATIVE (Negative); URINE PROTEIN NEGATIVE (Negative); URINE SPECIFIC GRAVITY <= 1.005 (1.005-1.030); URINE UROBILINOGEN 0.2 E.U./dl (0.2-1.0)
[2020-01-14] VITALS (23 sets, daily range): BP systolic 121–165; BP diastolic 54–85
[2020-01-14 06:09] LABS: HEMATOCRIT 28.2 % (37.0-47.0); HEMOGLOBIN 9.5 gm/dL (12.0-15.0); MCH 32.1 pg (26.0-34.0); MCHC 33.7 g/dL (28.0-37.0); MCV 95.3 fL (80.0-100.0); MPV 7.5 fl. (7.2-11.1); RBC 2.96 mil/uL (4.20-5.00); RDW-CV 13.6 % (10.5-14.5); WBC 27.6 thou/uL (4.0-11.0)
[2020-01-14 06:23] LABS: ALBUMIN 2.8 g/dL (3.4-5.0); CALCIUM 9.2 mg/dL (8.5-10.1); MAGNESIUM 2.1 mg/dL (1.8-2.4); POTASSIUM 3.8 mmol/L (3.5-5.1); TOTAL BILIRUBIN 1.3 mg/dL (<0.1-1.0); TOTAL PROTEIN 5.7 g/dL (6.4-8.2)
[2020-01-15] VITALS (20 sets, daily range): BP systolic 102–149; BP diastolic 53–78
[2020-01-15 05:15] LABS: HEMATOCRIT 28.2 % (37.0-47.0); HEMOGLOBIN 9.3 gm/dL (12.0-15.0); MCH 31.9 pg (26.0-34.0); MCHC 33.1 g/dL (28.0-37.0); MCV 96.2 fL (80.0-100.0); MPV 7.7 fl. (7.2-11.1); RBC 2.93 mil/uL (4.20-5.00); RDW-CV 13.9 % (10.5-14.5); WBC 22.3 thou/uL (4.0-11.0)
[2020-01-15 05:29] LABS: ALBUMIN 2.7 g/dL (3.4-5.0); CREATININE 1.1 mg/dL (0.6-1.3); MAGNESIUM 2.3 mg/dL (1.8-2.4); TOTAL BILIRUBIN 1.5 mg/dL (<0.1-1.0); TOTAL PROTEIN 5.5 g/dL (6.4-8.2)
[2020-01-16] VITALS (16 sets, daily range): BP systolic 78–186; BP diastolic 41–99
[2020-01-16 04:53] LABS: HEMATOCRIT 26.7 % (37.0-47.0); HEMOGLOBIN 8.9 gm/dL (12.0-15.0); MCH 32.1 pg (26.0-34.0); MCHC 33.2 g/dL (28.0-37.0); MCV 96.6 fL (80.0-100.0); MPV 7.8 fl. (7.2-11.1); RBC 2.76 mil/uL (4.20-5.00); RDW-CV 13.8 % (10.5-14.5); WBC 23.8 thou/uL (4.0-11.0)
[2020-01-16 05:13] LABS: MAGNESIUM 2.3 mg/dL (1.8-2.4); POTASSIUM 4.1 mmol/L (3.5-5.1)
[2020-01-17] VITALS (9 sets, daily range): BP systolic 116–174; BP diastolic 40–113
[2020-01-17 04:46] LABS: HEMATOCRIT 26.7 % (37.0-47.0); MCH 32.3 pg (26.0-34.0); MCHC 33.8 g/dL (28.0-37.0); MCV 95.4 fL (80.0-100.0); NUCLEATED RBCS 0 /100WBC; PLATELET COUNT* 129 thou/uL (150-400); RBC 2.79 mil/uL (4.20-5.00); RDW-CV 13.8 % (10.5-14.5); WBC 23.5 thou/uL (4.0-11.0)
[2020-01-17 05:17] LABS: ALBUMIN 2.9 g/dL (3.4-5.0); CALCIUM 9.1 mg/dL (8.5-10.1); CREATININE 0.9 mg/dL (0.6-1.3); MAGNESIUM 2.5 mg/dL (1.8-2.4); TOTAL BILIRUBIN 1.3 mg/dL (<0.1-1.0); TOTAL PROTEIN 5.8 g/dL (6.4-8.2)
[2020-01-17 06:17] LABS: ABSOLUTE LYMPHOCYTES 0.5 thou/uL (0.8-5.3); ABSOLUTE MONOCYTES 0.2 thou/uL (0.0-1.2); ABSOLUTE NEUTROPHILS 22.8 thou/uL (1.6-8.1); PLATELET ESTIMATE DECREASED
[2020-01-17 06:18] LABS: ANISOCYTOSIS 1+; POIKILOCYTOSIS 1+
[2020-01-17 08:40] LABS: BE 7.8 mmol/L (-2 to +3); pH 7.497 (7.340-7.450)
[2020-01-17 08:45] LABS: PO2 54.7 mmHg (75.0-100.0)
== END 2020-01-17 20:21 | DRG 871 ==
LOC: M.ERS 21:14 → M.TBA-ER 23:38 → M.ICU 01-04 16:00
PROVIDERS: Emergency Medicine Emergency Medical Services; Family Medicine; Internal Medicine; Internal Medicine Critical Care Medicine; ADMIT Internal Medicine; ATTEND Internal Medicine
PROC: 0BH17EZ Insertion of Endotracheal Airway into Trachea, Via Natural or Artificial Opening (ICD-10-PCS; principal; 2020-01-03)
PROC: 02HV33Z Insertion of Infusion Device into Superior Vena Cava, Percutaneous Approach (ICD-10-PCS; 2020-01-04)
PROC: 5A09357 Assistance with Respiratory Ventilation, Less than 24 Consecutive Hours, Continuous Positive Airway Pressure (ICD-10-PCS; 2020-01-04)
PROC: B548ZZA Ultrasonography of Superior Vena Cava, Guidance (ICD-10-PCS; 2020-01-04)
PROC: 5A1945Z Respiratory Ventilation, 24-96 Consecutive Hours (ICD-10-PCS; 2020-01-04)
PROC: 5A09457 Assistance with Respiratory Ventilation, 24-96 Consecutive Hours, Continuous Positive Airway Pressure (ICD-10-PCS; 2020-01-08)
PROC: 5A09357 Assistance with Respiratory Ventilation, Less than 24 Consecutive Hours, Continuous Positive Airway Pressure (ICD-10-PCS; 2020-01-10)
PROC: 5A09357 Assistance with Respiratory Ventilation, Less than 24 Consecutive Hours, Continuous Positive Airway Pressure (ICD-10-PCS; 2020-01-11)
PROC: 5A09357 Assistance with Respiratory Ventilation, Less than 24 Consecutive Hours, Continuous Positive Airway Pressure (ICD-10-PCS; 2020-01-12)
PROC: 5A09357 Assistance with Respiratory Ventilation, Less than 24 Consecutive Hours, Continuous Positive Airway Pressure (ICD-10-PCS; 2020-01-13)
PROC: 5A09357 Assistance with Respiratory Ventilation, Less than 24 Consecutive Hours, Continuous Positive Airway Pressure (ICD-10-PCS; 2020-01-14)
PROC: 5A09357 Assistance with Respiratory Ventilation, Less than 24 Consecutive Hours, Continuous Positive Airway Pressure (ICD-10-PCS; 2020-01-15)
PROC: 5A09357 Assistance with Respiratory Ventilation, Less than 24 Consecutive Hours, Continuous Positive Airway Pressure (ICD-10-PCS; 2020-01-16)
PROC: 5A09357 Assistance with Respiratory Ventilation, Less than 24 Consecutive Hours, Continuous Positive Airway Pressure (ICD-10-PCS; 2020-01-17)
DX: A41.50 Gram-negative sepsis, unspecified (principal); J15.6 Pneumonia due to other Gram-negative bacteria; E43 Unspecified severe protein-calorie malnutrition; J96.22 Acute and chronic respiratory failure with hypercapnia; J96.21 Acute and chronic respiratory failure with hypoxia; G93.40 Encephalopathy, unspecified; J84.10 Pulmonary fibrosis, unspecified; F41.9 Anxiety disorder, unspecified; F32.9 Major depressive disorder, single episode, unspecified; E03.9 Hypothyroidism, unspecified; J84.89 Other specified interstitial pulmonary diseases; E11.649 Type 2 diabetes mellitus with hypoglycemia without coma; E11.40 Type 2 diabetes mellitus with diabetic neuropathy, unspecified; I27.20 Pulmonary hypertension, unspecified; K58.9 Irritable bowel syndrome, unspecified; I08.1 Rheumatic disorders of both mitral and tricuspid valves; D63.8 Anemia in other chronic diseases classified elsewhere; M79.89 Other specified soft tissue disorders; E78.00 Pure hypercholesterolemia, unspecified; Z51.5 Encounter for palliative care; Z66 Do not resuscitate; Z20.828 Contact with and (suspected) exposure to other viral communicable diseases; Z68.27 Body mass index [BMI] 27.0-27.9, adult; Z88.5 Allergy status to narcotic agent; Z90.49 Acquired absence of other specified parts of digestive tract; Z90.710 Acquired absence of both cervix and uterus; Z79.4 Long term (current) use of insulin; Z79.899 Other long term (current) drug therapy